=== PATIENT | female | born 1995 | race Caucasian/White ===

== ENCOUNTER 2018-07-13 14:20 | Emergency (ER) | payer BC, OTHER ==
[2018-07-13 14:27] VITALS: BP 142/86
--- NOTE | 2018-07-13 14:49 | EDPHY ---
H & P Stated Complaint: rolled l ankle yesterday and has had epigastric/cp x 1 week Time Seen by Provider: 07/13/18 14:48 HPI/ROS: CHIEF COMPLAINT: 1. Left ankle injury 2. Left-sided chest pain HISTORY OF PRESENT ILLNESS: The patient presents the ED with 2 complaints. She rolled her ankle prior to arrival. She complains of some left lateral ankle pain. The pain is moderate worsened with movement and palpation. The patient denies any acute numbness or weakness. Additionally she complains of a week of left-sided substernal chest discomfort which is worsened with eating and lying flat. She denies any the gastroesophageal reflux symptoms. She has no complaints of asymmetric calf pain or swelling. She denies pleuritic chest pain. REVIEW OF SYSTEMS: A comprehensive 10 point review of systems is otherwise negative aside from elements mentioned in the history of present illness. Source: Patient - Personal History LMP (Females 10-55): 1-7 Days Ago Current Tetanus Diphtheria and Acellular Pertussis (TDAP): Yes - Medical/Surgical History Hx Asthma: Yes Hx Chronic Respiratory Disease: No Hx Diabetes: No Hx Cardiac Disease: No Hx Renal Disease: No Hx Cirrhosis: No Hx Alcoholism: No Hx HIV/AIDS: No Hx Splenectomy or Spleen Trauma: No Other PMH: asthma, add, anxiety, tonsillectomy - Social History Smoking Status: Never smoked - Physical Exam Exam: General Appearance: Alert, no distress Eyes: Pupils equal and round no pallor or injection ENT, Mouth: Mucous membranes moist Respiratory: There are no retractions, lungs are clear to auscultation Cardiovascular: Regular rate and rhythm Gastrointestinal: Abdomen is soft and nontender, no masses, bowel sounds normal Neurological: 5/5 strength all 4 extremities Skin: Warm and dry, no rashes Musculoskeletal: Neck is supple nontender Extremities: Tenderness to palpation left lateral aspect of the ankle Psychiatric: Patient is oriented X 3, there is no agitation Constitutional: Initial Vital Signs Temperature (C) 36.8 C 07/13/18 14:24 Heart Rate 63 07/13/18 14:24 Respiratory Rate 17 07/13/18 14:24 Blood Pressure 142/86 H 07/13/18 14:24 O2 Sat (%) 97 07/13/18 14:24 O2 Delivery Mode Room Air Allergies/Adverse Reactions: amoxicillin Allergy (Verified 07/13/18 14:23) tree nut [Nuts] Allergy (Verified 07/13/18 14:23) Home Medications: Medication Instructions Recorded Strattera 06/25/16 VYVANSE 06/25/16 Medical Decision Making ED Course/Re-evaluation: The patient presents the ED for evaluation of an ankle injury. Her x-ray demonstrates demonstrates no evidence of a fracture. The patient will be placed in a Gardner boot. She is advised to weight bear as tolerated. Regarding her chest pain it appears to be most consistent with dyspepsia and gastroesophageal reflux disease. I will recommend the patient begin ranitidine 150 mg twice daily. She is discharged home with customary aftercare instructions and return precautions. Differential Diagnosis: Differential diagnosis considered includes fracture, sprain, dislocation, dyspepsia Departure - Departure Disposition: Home, Routine, Self-Care Clinical Impression: Left ankle sprain Condition: Good Instructions: Ankle Sprain (ED) Additional Instructions: 1. Gardner boot as needed for comfort. Your x-ray demonstrates no evidence of an obvious fracture. 2. Take Ibuprofen or Motrin 600 mg by mouth three times a day. 3. I recommend taking Zantac 150 mg twice daily for your chest discomfort as I do believe it is likely related to gastroesophageal reflux. 4. Please return to the ED for markedly worsening symptoms or other concerns.
== END 2018-07-13 15:17 | disposition home or self-care (01) ==
DX: S93.402A Sprain of unspecified ligament of left ankle, initial encounter (principal); X50.0XXA Overexertion from strenuous movement or load, initial encounter; R10.13 Epigastric pain; K21.9 Gastro-esophageal reflux disease without esophagitis
CPT/HCPCS: L4386